=== PATIENT | female | born 1945 | race Caucasian/White ===

== ENCOUNTER → 2016-06-10 | Outpatient (CLI) | payer MEDICARE, OTHER ==
[2016-06-10 11:38] LABS: Blood Urea Nitrogen 17 mg/dL (7-17); Non-African American GFR(MDRD) >60 (>60 ml/min/1.73 sqM)
--- NOTE | 2016-06-10 13:32 | CT ---
EXAMINATION TYPE: CT chest abdomen wo/w con DATE OF EXAM: 06/10/2016 12:20 PM COMPARISON: NONE HISTORY: Lung cancer progress study. CT DLP: 2260 mGycm. Automated Exposure Control for Dose Reduction was Utilized. CONTRAST: CT scan of the thorax and abdomen are performed with oral and without and with IV Contrast, patient i njected with 100 mL of Omnipaque 300. FINDINGS: LUNGS: Mild to moderate underlying emphysematous changes redemonstrated. There is persistent scarlike opacity in the periphery of the left midlung anteriorly near axial image 36 felt stable. No new pare nchymal nodule or mass is evident bilaterally. No pleural effusion or pneumothorax is seen. Tracheobr onchial tree is patent. MEDIASTINUM: There are no greater than 1 cm hilar or mediastinal lymph nodes. No pericardial effusi on is seen. Prominent three-vessel coronary artery calcification and/or coronary stents is noted. OTHER: No additional significant abnormality is seen. LIVER/GB: Gallbladder is nonvisualized and presumed surgically absent. There is stable 4 mm calcific focus right hepatic lobe on axial image 62. There is persistent mild to borderline moderate extrahepa tic biliary dilatation measuring up to 14 mm on coronal image 35 felt stable. Mild to minimal central intrahepatic biliary dilatation is felt stable. PANCREAS: No significant abnormality is seen. SPLEEN: No significant abnormality is seen. ADRENALS: No significant abnormality is seen. KIDNEYS: There is redemonstration of solid and cystic partially exophytic suspicious mass anteriorly upper pole level right kidney strongly suspicious for neoplasm measuring roughly 3.4 x 3.0 cm on axia l image 65 grossly stable from prior exam. Visualized right renal vein remains patent. There is [employer] cortical medullary uptake and excretion from both kidneys without evidence of hydronephrosis bilaterally BOWEL: Oral contrast only reaches mid small bowel level making evaluation slightly suboptimal. No torrey picious dilatation is present. LYMPH NODES: No greater than 1cm abdominal lymph nodes are appreciated. OSSEOUS STRUCTURES: Some multilevel spurring in the thoracic spine is present. OTHER: No significant additional abnormality is seen. IMPRESSION: 1. 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 No new suspicious mass or adenopath y is present. 2. Redemonstration of nonsimple partially exophytic solid and cystic mass anteriorly upper pole level right kidney suspicious for renal cell carcinoma felt stable in size and appearance. 3. Persistent mild extrahepatic biliary dilatation not significantly changed from prior.
== END | disposition home or self-care (01) ==
LOC: RADCTMAIN 11:03
PROVIDERS: ATTEND Radiology Radiation Oncology
DX: N28.89 Other specified disorders of kidney and ureter (principal); K83.8 Other specified diseases of biliary tract; C34.12 Malignant neoplasm of upper lobe, left bronchus or lung
CPT/HCPCS: 82565; 84520; 71270; 74170; 36415; Q9967